=== PATIENT | female | born 1975 | race Caucasian/White ===

== ENCOUNTER 2018-07-23 15:35 | Emergency (ER) | payer BC ==
[~2018-07-23] VITALS: Ht 175.3 cm; Wt 107.0 kg
--- OUTSIDE RECORDS SUMMARY | 2018-07-23 15:37 | XMS REPORT | Clinical Summary ---
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 Active pregabalin (LYRICA) 150 Take 150 mg 0 MG capsule by mouth 2 (two) times a day. Active cholecalciferol, vitamin Take 5,000 0 D3, (VITAMIN D3) 5,000 Units by unit capsule mouth daily. Active warfarin (COUMADIN) 7.5 Take 7.5 mg 0 MG tablet by mouth daily. Active HYDROcodone-acetaminophen Take 2 0 (NORCO) 10-325 mg per tablets by tablet mouth every 6 (six) hours as needed for moderate pain. Active cephalexin (KEFLEX) 500 Take 500 mg 0 MG capsule by mouth every 8 (eight) hours. Started 02-07-17 x 10 days Active enoxaparin (LOVENOX) 100 Inject 1 0 mg/mL syringe mg/kg under the skin every 12 (twelve) hours. Active CRANBERRY FRUIT EXTRACT Take 1 0 (CRANBERRY CONCENTRATE capsule by ORAL) mouth daily. Active phenazopyridine Take 100 mg 0 (PYRIDIUM) 100 MG tablet by mouth every 6 (six) hours as needed for bladder spasms. Started 02-07-17 Active pantoprazole (PROTONIX) Take 20 mg by 0 20 MG EC tablet mouth daily. 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 Pt takes with 30mg=45mg Active thyroid, pork, (ARMOUR Take 30 mg by 0 THYROID) 30 mg tablet mouth daily. Pt takes with 15mg=45mg Active SACCHAROMYCES BOULARDII Take 1 0 (PROBIOTIC, S.BOULARDII, capsule by ORAL) mouth daily. Active Problems Problem Noted Date Pulmonary embolism without acute cor pulmonale 09/22/2016 Encounters Care Team Description Date Type Specialty Marta Fuentes MD Encounter for special screening examination for neoplasm of breast (Primary Dx) 05/17/2018 Transcribe Access Orders after 07/22/2017 Social History Date Tobacco Use Types Packs/Day Years Used Never Smoker Smokeless Tobacco: Never Used Alcohol Use Drinks/Week oz/Week Comments No Sex Assigned at Date Recorded Not on file Industry Job Start Date Occupation Not on file Not on file Not on file Travel End Travel History Travel Start No recent travel history available. Last Filed Vital Signs Not on file Plan of Treatment Health Maintenance Due Date Last Done Comments INFLUENZA VACCINE 09/15/2018 Procedures Comments Procedure Name Priority Date/Time Associated Diagnosis MAMMO BREAST SCREEN Routine 05/24/2018 Encounter for special TOMOSYNTHESIS BILATERAL 9:52 AM CDT screening examination for neoplasm of breast after 07/22/2017 Results * Mammo Breast Screen Tomosynthesis Bilateral (05/24/2018 9:52 AM CDT) Specimen Narrative Performed At PROCEDURE: MAMMO BREAST SCREEN TOMOSYNTHESIS BILATERAL [facility] Computer aided detection was utilized for the interpretation of the digital bilateral screening mammography with tomosynthesis. COMPARISON: Prior study dating 01/27/2017 DENSITY: The breast parenchyma is heterogeneously dense, decreasing the sensitivity of the study. There is no evidence of suspicious new masses, architectural distortions or grouped calcifications. IMPRESSION:No mammographic evidence of malignancy. RECOMMENDATION: Comparison with physical exam and annual screening mammography. BI-RADS 1:NEGATIVE This facility is accredited by the [employer] for Mammography. A negative x-ray report should not delay biopsy if a dominant or clinically suspicious mass is present.Not all cancers are identified by x-ray. [id number] Performing Organization Address City/State/Zipcode Phone Number [facility] [address] [place] [address] after 07/22/2017 Insurance Type Payer Benefit Subscriber ID Effective Phone Address Plan / Dates Group [facility] xxxxxxxxx 2016-P [place] [address] [place] [facility] BCBS [place] xxxxxxxxxxxx 2016-P CT IN resent AREA/O BLUE ESSENTIALS Advance Directives Patient has advance care planning documents, and code status on file. For more i nformation, please contact: Deandre Bourne [address] [place] [address] Date Inactivated Comments Code Status Date Activated 09/25/2016 11:59 PM Full Code 09/22/2016 7:33 PM Code Status decision reached by: Patient
[2018-07-23 15:51] LABS: BASOPHILS % 0.1 % (0.0-1.0); EOSINOPHILS # (AUTO) 0.2 (0.0-0.4); EOSINOPHILS % 2.7 % (0.0-6.0); HEMATOCRIT 43.5 % (34.2-44.1); HEMOGLOBIN 14.4 g/dL (12.0-16.0); LYMPHOCYTES # (AUTO) 1.7 (1.0-3.2); LYMPHOCYTES % 24.4 % (18.0-39.1); MEAN CORPUSCULAR HEMOGLOBIN 28.3 pg (28-32); MEAN CORPUSCULAR HGB CONC 33.1 g/dL (31-35); MEAN CORPUSCULAR VOLUME 85.6 fL (81-99); MONOCYTES # (AUTO) 0.7 (0.2-0.8); NEUTROPHILS # (AUTO) 4.3 (2.1-6.9); NEUTROPHILS % 62.5 % (38.7-80.0); PLATELET COUNT 237 x10e3/uL (140-360); RED BLOOD COUNT 5.08 x10e6/uL (3.6-5.1); RED CELL DISTRIBUTION WIDTH 13.1 % (11.7-14.4)
[2018-07-23 16:00] LABS: INR 0.83; PROTHROMBIN TIME 11.9 seconds (11.9-14.5)
[2018-07-23 16:07] LABS: ANION GAP 13.6 mmol/L (8-16); BLOOD UREA NITROGEN 7 mg/dL (7-26); BUN/CREATININE RATIO 10 (6-25); CARBON DIOXIDE 24 mmol/L (22-29); CHLORIDE 104 mmol/L (98-107); CREATININE, SERUM 0.72 mg/dL (0.57-1.11); EST GLOMERULAR FILTRATION RATE > 60 ML/MIN (60-); GLUCOSE 94 mg/dL (74-118); POTASSIUM 3.6 mmol/L (3.5-5.1); SODIUM 138 mmol/L (136-145)
--- NOTE | 2018-07-23 17:56 | NUR ---
EVAN TECH COMPLETED TEST. RELAYED TO DR. JONES THAT HER TEST IS NEGATIVE
== END 2018-07-23 18:41 | disposition home or self-care (01) ==
LOC: ER 15:35
DX: M79.662 Pain in left lower leg (principal); Z86.718 Personal history of other venous thrombosis and embolism
CPT/HCPCS: 36415; 80048; 85025; 85379; 85610; 85730; 93971; 99283